=== PATIENT | female | born 1955 | race Hispanic/Latino ===

== ENCOUNTER 2020-01-22 23:26 | Observation (INO) | payer BC, OTHER ==
[~2020-01-22] VITALS: Ht 149.9 cm; Wt 81.5 kg
[~2020-01-22 23:26] MED LIST: CYCL30DR OP; HYDR25TA PO; LISI-613 PO
[2020-01-23] MEDS ORDERED: NITROGLYCERIN 1GM/1 INCH PACKET TD ONE
[2020-01-23] MEDS ORDERED: ASPIRIN 325 MG TABLET ONE
[2020-01-23 00:20] LABS: BASOPHILS % (AUTO) 0.4 % (0.0-5.0); EOSINOPHILS % (AUTO) 2.1 % (0.0-8.0); HEMATOCRIT 41.7 % (36-48); MEAN CORPUSCULAR HEMOGLOBIN 30.1 pg (27.0-33.0); MEAN CORPUSCULAR HGB CONC 32.4 g/dL (32.0-36.0); MEAN CORPUSCULAR VOLUME 93.1 fL (79-99); MONOCYTES % (AUTO) 8.1 % (3.0-13.0); NEUTROPHILS % (AUTO) 63.8 % (40.0-77.0); PLATELET COUNT (AUTO) 290 K/uL (130-400); RED BLOOD CELL COUNT(AUTO) 4.48 MIL/uL (4.00-5.50); RED CELL DISTRIBUTION WIDTH 12.9 % (11.0-15.5); WHITE BLOOD COUNT (AUTO) 10.7 K/uL (4.8-10.8)
[2020-01-23 00:25] LABS: POTASSIUM 4.3 mmol/L (3.5-5.1)
[2020-01-23 00:28] LABS: INR 0.91 (0.85-1.15); PARTIAL THROMBOPLASTIN TIME 25.3 SEC (26.3-35.5); PROTHROMBIN TIME 9.9 SEC (9.6-11.6)
[2020-01-23 00:30] LABS: ALBUMIN 4.1 g/dL (3.5-5.0); BILIRUBIN,TOTAL 0.4 mg/dL (0.2-1.0)
[2020-01-23] MEDS ORDERED: ORPHENADRINE CITRATE 30 MG/ML ML ONE (01:34)
[2020-01-23] MEDS ORDERED: METOPROLOL TARTRATE 1 MG/ML 5ML VIAL IV PRN (03:30)
[2020-01-23] MEDS ORDERED: NITROGLYCERIN 0.4 MG SL TAB SL PRN (03:30)
[2020-01-23 04:50] VITALS: BP 156/55
[2020-01-23 06:18] LABS: HEMATOCRIT 40.7 % (36-48); MEAN CORPUSCULAR HEMOGLOBIN 30.2 pg (27.0-33.0); MEAN CORPUSCULAR HGB CONC 32.2 g/dL (32.0-36.0); MEAN CORPUSCULAR VOLUME 93.8 fL (79-99); RED BLOOD CELL COUNT(AUTO) 4.34 MIL/uL (4.00-5.50); WHITE BLOOD COUNT (AUTO) 10.4 K/uL (4.8-10.8)
[2020-01-23 06:51] LABS: ALBUMIN 3.9 g/dL (3.5-5.0); BILIRUBIN,TOTAL 0.3 mg/dL (0.2-1.0); MAGNESIUM 1.8 mg/dL (1.80-2.40); POTASSIUM 3.8 mmol/L (3.5-5.1); TOTAL PROTEIN, SERUM 7.6 g/dL (6.0-8.3)
[2020-01-23] MEDS ORDERED: MAGNESIUM 2GM PREMIX 50ML 50 ML IV PRN (07:00)
[2020-01-23 08:00] VITALS: BP 132/76
[2020-01-23] MEDS ORDERED: ASPIRIN 81MG TAB.CHEW PO SCH (09:00)
[2020-01-23 11:53] VITALS: BP 135/74
--- NOTE | 2020-01-23 13:48 | NUR ---
PER MD ORDER CONSULTED DR GRANADOS, STATED HE WOULD SEE HER LATER TODAY.
[2020-01-23 16:00] VITALS: BP 144/80
== END 2020-01-23 19:05 | disposition home or self-care (01) ==
LOC: EDH 23:26 → EDHIP 01-23 02:23 → 3AH 01-23 03:17
PROVIDERS: ADMIT Internal Medicine Pulmonary Disease; ATTEND Internal Medicine Pulmonary Disease
DX: R07.89 Other chest pain (principal); I10 Essential (primary) hypertension; E78.5 Hyperlipidemia, unspecified; E11.9 Type 2 diabetes mellitus without complications; Z86.73 Personal history of transient ischemic attack (TIA), and cerebral infarction without residual deficits; Z90.49 Acquired absence of other specified parts of digestive tract; Z79.82 Long term (current) use of aspirin
CPT/HCPCS: 36415 ×2; 71045; 80053 ×2; 82550; 82948 ×3; 83690; 83735; 84484 ×3; 85025; 85027; 85610; 85730; 93005; 96365; 96366; 99285; G0378 ×15; J2360; J3475

== ENCOUNTER → 2020-04-12 | Outpatient (CLI) | payer OTHER ==
[~2020-04-12] MED LIST changes: +REGADENOSON 0.4 MG/5 ML PF SYG IVP SCH
== END | disposition home or self-care (01) ==
LOC: SHCH 08:23
PROVIDERS: ATTEND Internal Medicine Cardiovascular Disease
DX: R07.9 Chest pain, unspecified (principal)
CPT/HCPCS: 78452; 93017; 96374; A9500 ×2; J2785

== ENCOUNTER → 2022-11-27 | Outpatient (CLI) | payer OTHER ==
[~2022-11-27] MED LIST changes: -LISI-613 PO; +LISI20TA24 PO; -REGADENOSON 0.4 MG/5 ML PF SYG IVP SCH
== END | disposition home or self-care (01) ==
LOC: RAH 12:13
PROVIDERS: ATTEND Internal Medicine
DX: M79.605 Pain in left leg (principal); M79.604 Pain in right leg
CPT/HCPCS: 93970